=== PATIENT | female | born 1965 | race Caucasian/White ===

== ENCOUNTER 2017-02-03 13:27 | Emergency (ER) | payer OTHER, MEDICAID ==
--- NOTE | 2017-02-03 14:11 | EDPHY ---
General Narrative: CHIEF COMPLAINT: Right rib pain HISTORY OF PRESENT ILLNESS: Patient complains of right-sided lower rib pain. This started 2 nights ago when she gave herself a Heimlich maneuver when she was choking. She struck her ribs on a couch intentionally was able to dislodge the food. Since then she has had pain in the right mid axillary line. [id number]. Does not radiate. Worse with palpation and movement. No worse with inspiration. No fever chills. No cough. No shortness of breath. No abdominal pain. No hematuria. No other associated complaints or modifying factors. ESTABLISHED ORTHOPEDIST: None REVIEW OF SYSTEMS: Ten systems reviewed and are negative unless otherwise noted in the HPI PAST MEDICAL HISTORY: HIV positive, cervical carcinoma rectal carcinoma, PTSD, dyslipidemia, dissociated identity disorder PAST SURGICAL HISTORY: None recently SOCIAL HISTORY: Nonsmoker. Occasional. No drug use. FAMILY HISTORY: Noncontributory EXAMINATION General Appearance: Alert, no distress Respiratory: Lungs clear in all beebe. No wheezing, rhonchi or crackles. No diminishment. No retractions. No splinting. Tenderness on the right mid axillary line distally. No paradoxical movements. Cardiovascular: Pulses normal throughout. Symmetric radial pulses. Symmetric DP pulses. Brisk cap refill Neurological: A&O, sensory symmetric, strength symmetric Skin: Warm and dry, no rash. No petechiae or purpura. No lacerations or abrasions. Extremities: Nontender, no pedal edema Psychiatric: Mood and affect normal DIFFERENTIAL DIAGNOSES: Including but not limited to rib contusion, rib strain, rib fracture, musculoskeletal contusion MDM: 1:50 p.m. Right rib pain after blunt trauma to the ribs 2 nights ago. No abnormality by visualization. Auscultation is clear in all beebe. X-ray has been ordered. She is in no acute distress. 2:10 p.m. X-ray as read by me reveals no acute findings. No pneumothorax. Pneumothorax. 2:20 p.m. Patient re-evaluated. She is feeling comfortable. I discussed the x-ray. We discussed discharge home with anti-inflammatories, warm compresses and short course of Flexeril. She is to follow up with primary care physician. ED precautions as discussed. She is comfortable with this plan. She is discharged in stable condition. ED Precautions: Worsening pain. Erythema, edema, cyanosis, pallor, paresthesia or anesthesia. - Diagnostics Imaging Results: Imaging Impressions Ribs w/Chest X-Ray 02/03/17 13:51 Impression: Negative. - History Smoking Status: Never smoked - Objective Vital Signs: Initial Vital Signs Temperature (C) 97.9 F 02/03/17 13:44 Heart Rate 85 02/03/17 13:44 Respiratory Rate 16 02/03/17 13:44 Blood Pressure 127/92 H 02/03/17 13:44 O2 Sat (%) 96 02/03/17 13:44 O2 Delivery Mode Room Air Allergies/Adverse Reactions: Iodinated Contrast- Oral and IV Dye Allergy (Verified 02/03/17 13:42) Penicillins Allergy (Verified 02/03/17 13:42) sulfamethoxazole [From Bactrim] Allergy (Verified 02/03/17 13:42) trimethoprim [From Bactrim] Allergy (Verified 02/03/17 13:42) Home Medications: Medication Instructions Recorded Ambien 02/03/17 Aripiprazole 02/03/17 CYCLOBENZAPRINE HCL [Flexeril] 5 mg PO TIDPRN PRN #11 tab 02/03/17 Crestor 02/03/17 Cymbalta 02/03/17 Gabapentin 02/03/17 Lomotil Tab (*) 02/03/17 Prazosin HCl 02/03/17 Prezcobix 800 mg-150 mg Tablet 02/03/17 Tivicay 02/03/17 Departure - Departure Disposition: Home, Routine, Self-Care Clinical Impression: Contusion of rib on right side Qualifiers: Encounter type: initial encounter Qualified Code(s): S20.211A - Contusion of right front wall of thorax, initial encounter Condition: Good Instructions: Rib Contusion (ED) Additional Instructions: 1. Anti-inflammatories [id number] as needed for the next 7 days and stop 2. Warm compresses as needed. Do not sleep on these 3. Flexeril as prescribed as needed 4. ED precautions as discussed Referrals: Cristin Olguin, [employer] [employer] [facility] [Primary Care Provider] - As per Instructions Prescriptions: CYCLOBENZAPRINE HCL [Flexeril] 5 mg PO TIDPRN PRN #11 tab PRN Reason: Spasms
[2017-02-03 14:30] VITALS: BP 118/82; PULSE 82; RESP 15; TEMP 98.1; O2SAT 95
== END 2017-02-03 14:29 | disposition home or self-care (01) ==
DX: S20.211A Contusion of right front wall of thorax, initial encounter (principal); B20 Human immunodeficiency virus [HIV] disease; Z85.41 Personal history of malignant neoplasm of cervix uteri; Z85.048 Personal history of other malignant neoplasm of rectum, rectosigmoid junction, and anus; W22.03XA Walked into furniture, initial encounter

== ENCOUNTER 2017-05-09 11:32 | Inpatient (IN) | payer OTHER, MEDICAID ==
[2017-05-09 12:24] LABS: PLATELET COUNT 187 10^3/uL (150-400)
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
[2017-05-09] MEDS ORDERED: INSULIN REGULAR HUMAN 100 UNIT/ML UNIT IVP ONE (12:43)
[2017-05-09] MEDS ORDERED: INSULIN REGULAR HUMAN 100 UNIT, COSIGN. REQUIRED 1 EA in NS 100 ML IV ONE (12:43)
[2017-05-09] MEDS ORDERED: NS 1,000 ML IV ONE (12:43)
--- NOTE | 2017-05-09 12:46 | CPEKG ---
Heart Rate: 122 RR Interval: 492 P-R Interval: 152 QRSD Interval: 132 QT Interval: 340 QTC Interval: 485 P [place]: 84 QRS [place]: -63 T Wave [place]: 61 EKG Severity - ABNORMAL ECG - EKG Impression: SINUS TACHYCARDIA EKG Impression: NONSPECIFIC IVCD WITH LAD Electronically Signed By: Manjeet Alvarez 09-May-2017 14:58:58
[2017-05-09] MEDS ORDERED: INSULIN REGULAR HUMAN 100 UNIT in NS 100 ML IV ONE (13:00)
[2017-05-09] MEDS ORDERED: ONDANSETRON 4 MG/2 ML VIAL IVP PRN (13:17)
[2017-05-09] MEDS ORDERED: D5W 1,000 ML IV SCH (13:30)
[2017-05-09] MEDS ORDERED: INSULIN REGULAR HUMAN 100 UNIT in NS 100 ML IV SCH (13:30)
[2017-05-09] MEDS ORDERED: NS 1,000 ML IV SCH (13:30)
--- NOTE | 2017-05-09 14:10 | GHP ---
[f rep st] HISTORY AND PHYSICAL DATE OF ADMISSION: 05/09/2017 CHIEF COMPLAINT: Intentional Ambien overdose. HISTORY OF PRESENT ILLNESS: The patient is a 51-year-old female, with a history of HIV and cervical cancer, who presented to the emergency department via EMS after reportedly taking 20 pills of Ambien with the intent to self- harm. History was obtained from the emergency department physician and EMS, as the patient is unresponsive and unable to participate in interview. At the time of my exam, she is saturating 94% on room air. She responds to painful stimuli, is otherwise somnolent, with a heart rate of 117, and she is normotensive. She is noted to be hyperglycemic on her initial laboratory evaluation. An ABG will be checked, and she will be admitted to the intensive care unit on suicide precautions. PAST MEDICAL HISTORY: 1. HIV, on antiretroviral therapy. 2. History of cervical and rectal carcinoma. 3. PTSD. 4. Dyslipidemia. 5. Dissociative identity disorder. MEDICATIONS: Please see [facility] for complete updated outpatient medication list. ALLERGIES: Iodinated contrast, penicillin, and Bactrim. SOCIAL HISTORY: Unobtainable due to the patient's obtunded state. Per chart review, she is a nonsmoker and has previously denied drug use. FAMILY HISTORY: Unobtainable. REVIEW OF SYSTEMS: Unobtainable due the patient's obtunded state. PHYSICAL EXAMINATION: VITAL SIGNS: Temperature 37 degrees, blood pressure 103/ 89, heart rate 117, respiratory rate 18. She is 94% on room air. GENERAL: The patient is obtunded. She opens her eyes to painful stimuli with firm sternal rub. HEENT: Head is atraumatic, normocephalic. Pupils equal, round, reactive to light. Extraocular muscles are intact. Oropharynx is clear. Mucous membranes are dry. NECK: Supple. There is no JVD. HEART: Regular rate and rhythm. LUNGS: Clear to auscultation bilaterally. ABDOMEN: Soft, nondistended, nontender. Positive bowel sounds. EXTREMITIES: Without cyanosis , clubbing, or edema. NEUROLOGIC: Patient has a [place] Coma Scale of 5 on my initial evaluation. I returned to her bedside and she is a bit more responsive , opening her eyes to painful stimuli and withdrawing from pain, and answering some questions with a relatively nonsensical language. Her current [place] Coma Scale is 7. She moves all 4 extremities and did follow some basic commands. LABORATORY DATA: CBC reveals a normal white count, hemoglobin is 16. Basic metabolic panel is remarkable for potassium of 5, CO2 of 21. She has an anion gap of 14. Blood glucose is 422. Beta-hydroxybutyrate is not elevated. Urine drug screen is pending. Salicylates, acetaminophen, and ethyl alcohol levels are negative. EKG shows sinus tachycardia with no ST-segment or T-wave changes suggestive for acute ischemia. ASSESSMENT AND PLAN: The patient is a 51-year-old female with history of human immunodeficiency virus, posttraumatic stress disorder, and what looks like type 2 diabetes based on a recent A1c of 11.3, and presenting hyperglycemia. Arrived in the emergency department by EMS after an intentional Ambien overdose. 1. Intentional overdose. Patient reportedly took 20 Ambien. Assuming these were 5 mg tablets, that would be 100 mg. She is protecting her airway, though is quite obtunded with a [place] Coma Scale of 7 at present. Will check a stat ABG and consider intubation if her status deteriorates. She is currently saturating 94% on room air. Supportive care is planned. She will be admitted to the intensive care unit on suicide precautions. She will need behavioral health evaluation when she is medically cleared for likely inpatient psych stabilization. 2. Type 2 diabetes with hyperglycemia. She has a non-anion gap metabolic acidosis with a negative beta-hydroxybutyrate. There could be an element of hyperglycemic nonketotic coma, but this is not DKA. She will be started on insulin drip, and will provide aggressive IV fluid resuscitation with q.1 hour blood sugar checks. As above, her recent A1c was 11.3. It is unclear to me if she is taking any insulin or oral hypoglycemics. Currently awaiting her medication reconciliation. 3. Human immunodeficiency virus. She had an undetectable viral load in April 2012 with a CD4 count of 471. Will continue her antiretroviral therapy as soon as she is able to take p.o. 4. History of dissociative identity disorder and posttraumatic stress disorder. As above, she will require mental health evaluation and likely inpatient stabilization once she is medically cleared. I do not see any psychoactive agents on her medication list. I am still awaiting her medication reconciliation. 5. DVT prophylaxis. Patient is relatively low risk, though given her obtunded ICU status, will give Lovenox. 6. Code status: Patient is full code. 7. Disposition: Patient admitted inpatient status. She will require greater than 48 hours hospitalization for medical stabilization and psychiatric evaluation. /[id number]/MODL MTDD
[2017-05-09] MEDS ORDERED: D50W 25 GM/50 ML SYR IVP ONE ×3 (15:24→18:00)
[2017-05-09] MEDS ORDERED: D50W 25 GM/50 ML SYR IVP PRN (15:53)
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
[2017-05-09] MEDS ORDERED: PROTOCOL POTASSIUM 1 DOSE MISC PRN (18:12)
[2017-05-09] MEDS ORDERED: POTASSIUM Cl (KCl) 100 ML IV SCH (19:45)
[2017-05-09] MEDS ORDERED: POTASSIUM CL 20 MEQ TAB PO ONE (20:00)
[2017-05-09] MEDS ORDERED: POTASSIUM CL 20 MEQ TAB ONE (20:51)
[2017-05-09] MEDS: INSULIN LISPRO 100 UNIT/ML SC SCH (20:54)
[2017-05-10] MEDS: INSULIN LISPRO 100 UNIT/ML SC SCH ×5 (01:57→22:16)
[2017-05-10 06:36] LABS: PLATELET COUNT 182 10^3/uL (150-400)
[2017-05-10] MEDS ORDERED: POTASSIUM Cl (KCl) 100 ML IV SCH ×2 (07:09→14:00)
[2017-05-10] MEDS ORDERED: POTASSIUM CL 10 MEQ TAB PO ONE (07:30)
[2017-05-10] MEDS ORDERED: POTASSIUM Cl (KCl) 10 MEQ in NS 100 ML IV SCH (07:30)
[2017-05-10] MEDS: INSULIN GLARGINE 100 UNITS/ML UNIT SC SCH (08:32)
[2017-05-10] MEDS: ENOXAPARIN 40 MG/0.4 ML SYR SC SCH (08:33)
[2017-05-10] MEDS: GABAPENTIN 300 MG CAP PO SCH ×3 (08:33→22:17)
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
[2017-05-10] MEDS ORDERED: NON-FORMULARY NEW DRUG (Insulin Detemir [Levemir] 10 UNIT) SQ SCH (09:00)
[2017-05-10] MEDS ORDERED: COBICISTAT PO SCH (09:00)
[2017-05-10] MEDS ORDERED: RILPIVIRINE HCL 25 MG PO SCH (09:00)
[2017-05-10] MEDS ORDERED: DARUNAVIR PO SCH (09:00)
--- NOTE | 2017-05-10 11:26 | ASMTCASEMG ---
Living Arrangements What is your living Answers: With Partner arrangement? Who do you live with? Type Of Residence What kind of residence do Answers: Apartment you live in? Discharge Plan Comments Coordination Status Comments Notes: Patient is a 51yo female who was admitted for an intentional overdose, having taken 20 Ambien. Patient has hx of HIV and Type 2 Diabetes. She will need medical stabilization and then a psychiatric evaluation. [facility] will evaluate since patient is Medicaid/Medicare. CM will follow. Date Signed: 05/10/2017 11:25 AM Electronically Signed By:Huma Hyde LCSW
[2017-05-10] MEDS: DIPHENOXYLATE/ATROPINE LOMOTIL 1 TAB PO PRN (12:05)
[2017-05-10] MEDS ORDERED: POTASSIUM CL 20 MEQ TAB PO ONE (14:00)
[2017-05-10] MEDS ORDERED: hydrOXYzine HCL 50 MG TAB PO PRN (14:14)
[2017-05-10] MEDS: ARIPiprazole 5 MG TAB PO SCH (15:05)
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
[2017-05-10] MEDS ORDERED: ACETAMINOPHEN 500 MG TAB PO PRN (18:47)
[2017-05-10 19:47] VITALS: O2SAT 97
[2017-05-11 06:50] VITALS: BP 138/93; PULSE 95; RESP 12; TEMP 97.8
[2017-05-11] MEDS: ENOXAPARIN 40 MG/0.4 ML SYR SC SCH (08:26)
[2017-05-11] MEDS: GABAPENTIN 300 MG CAP PO SCH (08:26)
[2017-05-11] MEDS: DIPHENOXYLATE/ATROPINE LOMOTIL 1 TAB PO PRN (08:26)
[2017-05-11] MEDS: ARIPiprazole 5 MG TAB PO SCH (08:26)
[2017-05-11] MEDS: INSULIN LISPRO 100 UNIT/ML SC SCH ×2 (08:33→13:16)
[2017-05-11] MEDS: INSULIN GLARGINE 100 UNITS/ML UNIT SC SCH (08:35)
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
--- NOTE | 2017-05-11 14:51 | ASMTCMCOM ---
CM Note CM Note Notes: Spoke with patient who states she is willing to go to the [facility] in [place] even though her son has chosen to stay in the household. [facility] made a CPS report today to make sure patient's son will be checked on. Patient will have counselors available to help her sort out her next steps. [facility] has a bed for her so patient is ready for d/c today. We will taxi patient directly there to preserve confidentiality of the [facility] and ensure patient's safety between the 2 facilities.Dr. Avila informed for d/c order and summaries by Christine patient's nurse. CM will follow. Date Signed: 05/11/2017 02:51 PM Electronically Signed By:Huma Hyde LCSW
== END 2017-05-11 15:11 | disposition home or self-care (01) | DRG 918 ==
LOC: EDUNIT# → EEVIPCON 12:46 → F2N 15:02
PROVIDERS: ADMIT Hospitalist; ATTEND Hospitalist
DX: T42.6X2A Poisoning by other antiepileptic and sedative-hypnotic drugs, intentional self-harm, initial encounter (principal); F43.10 Post-traumatic stress disorder, unspecified; E11.65 Type 2 diabetes mellitus with hyperglycemia; Z21 Asymptomatic human immunodeficiency virus [HIV] infection status; F31.9 Bipolar disorder, unspecified; F44.81 Dissociative identity disorder; Z91.419 Personal history of unspecified adult abuse; Z85.41 Personal history of malignant neoplasm of cervix uteri; Z85.048 Personal history of other malignant neoplasm of rectum, rectosigmoid junction, and anus; Z90.710 Acquired absence of both cervix and uterus
CPT/HCPCS: 80305; 82947-QW; G0480; J1650; J1815; J3480

== ENCOUNTER → 2017-09-20 | Outpatient (CLI) | payer OTHER, MEDICAID | LOC: FIMAGING 13:21 | PROVIDERS: ATTEND Obstetrics & Gynecology | DX: Z12.31 Encounter for screening mammogram for malignant neoplasm of breast (principal) ==